=== PATIENT | male | born 1945 | race Caucasian/White ===

== ENCOUNTER 2016-12-07 17:59 | Emergency (ER) | payer MEDICARE, BC ==
[2016-12-07 19:17] LABS: BASO % 0.3 % (0-6); GRAN % 69.9 % (47-80); HEMATOCRIT 38.1 % (42.0-52.0); HEMOGLOBIN 13.5 gm/dl (14.0-18.0); MEAN CELL VOLUME 100.5 fl (81-97); MEAN CORPUSCULAR HEMOGLOBIN 35.6 pg (27-33); MEAN CORPUSCULAR HGB CONC 35.4 g/dl (32-36); MEAN PLATELET VOLUME 9.5 fl (7.4-10.4); MONO % 9.8 % (0-9); PLATELET COUNT 158 K/uL (130-400); RED BLOOD COUNT 3.79 M/uL (4.40-5.70); RED CELL DISTRIBUTION WIDTH 12.2 % (11.5-14.5); WHITE BLOOD COUNT W/O DIFF 7.3 K/uL (4.2-12.2)
[2016-12-07 19:27] LABS: ANION GAP 10.7 (7-16); CARBON DIOXIDE 26.3 mmol/L (22-30); CREATININE 1.8 mg/dL (0.66-1.25)
[2016-12-07 19:29] LABS: INR 1.48; PARTIAL THROMBOPLASTIN TIME 38.1 SECONDS (24.5-39.1); PROTHROMBIN TIME (PATIENT) 16.1 SECONDS (9.5-12.1)
[2016-12-07] MEDS ORDERED: 0.9 % SODIUM CHLORIDE 1,000 ML BAG IV ONE (20:56)
[2016-12-07] MEDS ORDERED: HYDROCODONE/APAP 5/325MG TABLET PO ONE (20:56)
--- NOTE | 2016-12-07 21:23 | Emergency Department Record ---
History of Present Illness - General Chief complaint: Pain Stated complaint: POSS BROKEN RIB Time Seen by Provider: 12/07/16 19:01 Source: Patient Mode of Arrival: Ambulatory Limitations: No limitations - History of Present Illness Initial comments: pt fell 2 days ago hitting l ribs. pt has contd to have pain which increases with inspiration, Complaint: Other Onset/Timin -: Days(s) Location: Left History of Same: No Severity scale (1-10): 7 Quality: Aching Consistency: Constant Improves with: Rest Associated Symptoms: Shortness of breath - Related Data Home Medications Medication Instructions Recorded Confirmed Last Taken Aspirin [Aspirin EC] 81 mg PO DAILY 12/07/16 12/07/16 1 Day Ago ~12/06/16 Docusate Sodium [Colace] 100 mg PO DAILY 12/07/16 12/07/16 1 Day Ago ~12/06/16 Furosemide [Lasix] 40 mg PO DAILY 12/07/16 12/07/16 1 Day Ago ~12/06/16 Indomethacin [Indocin] 50 mg PO DAILY 12/07/16 12/07/16 1 Day Ago ~12/06/16 Ipratropium/Albuterol Sulfate 1 - 2 puff IH TID PRN 12/07/16 12/07/16 1 Day Ago [Combivent] ~12/06/16 Lisinopril [Prinivil] 5 mg PO QAM 12/07/16 12/07/16 1 Day Ago ~12/06/16 Metoprolol Tartrate 75 mg PO DAILY 12/07/16 12/07/16 1 Day Ago ~12/06/16 Nitroglycerin [Nitrostat] 0.4 mg SL ASDIR 12/07/16 12/07/16 1 Day Ago ~12/06/16 Omeprazole [Prilosec] 20 mg PO DAILY 12/07/16 12/07/16 1 Day Ago ~12/06/16 Potassium Chloride [Klor-Con] 10 meq PO DAILY 12/07/16 12/07/16 1 Day Ago ~12/06/16 Rivaroxaban [Xarelto] 20 mg PO DAILY 12/07/16 12/07/16 1 Day Ago ~12/06/16 Rosuvastatin Calcium [Crestor] 10 mg PO DAILY 12/07/16 12/07/16 1 Day Ago ~12/06/16 Previous Rx's Medication Instructions Recorded Hydrocodone/Acetaminophen [[place] 1 each PO Q6HR #10 tablet 12/07/16 5-325 Tablet] Allergies Allergy/AdvReac Type Severity Reaction Status Date / Time No Known Drug Intolerances Allergy Unknown HYPERSENSIT Verified 12/07/16 18:59 [facility] Travel Screening - Travel/Exposure Within Last 30 Days Have you traveled within the last 30 days?: No - Travel/Exposure Within Last Year Have you traveled outside the [place] in the last year?: No - Additonal Travel Details Have you been exposed to anyone with a communicable illness?: No - Travel Symptoms Symptom Screening: None Review of Systems Reviewed: No additional complaints except as noted below Constitutional: Reports: As per HPI. Denies: Chills, Fever, Malaise, Night sweats, Weakness, Weight change Eyes: Reports: As per HPI. Denies: Eye discharge, Eye pain, Photophobia, Vision change ENT: Reports: As per HPI. Denies: Congestion, Dental pain, Ear pain, Epistaxis , Hearing loss, Throat pain Respiratory: Reports: As per HPI. Denies: Cough, Dyspnea, Hemoptysis, Stridor, Wheezes Cardiovascular: Reports: As per HPI. Denies: Arrhythmia, Chest pain, Dyspnea on exertion, Edema, Murmurs, Orthopnea, Palpitations, Paroxysmal nocturnal dyspnea, Rheumatic Fever, Syncope Endocrine: Reports: As per HPI. Denies: Fatigue, Heat or cold intolerance, Polydipsia, Polyuria Gastrointestinal: Reports: As per HPI. Denies: Abdominal pain, Constipation, Diarrhea, Hematemesis, Hematochezia, Melena, Nausea, Vomiting Genitourinary: Reports: As per HPI. Denies: Dysuria, Frequency, Hematuria, Incontinence, Retention, Testicular pain, Testicular mass, Urgency Musculoskeletal: Reports: As per HPI. Denies: Arthralgia, Back pain, Gout, Joint swelling, Myalgia, Neck pain Skin: Reports: As per HPI. Denies: Bruising, Change in color, Change in hair/ nails, Lesions, Pruritus, Rash Neurological: Reports: As per HPI. Denies: Abnormal gait, Confusion, Headache, Numbness, Paresthesias, Seizure, Tingling, Tremors, Vertigo, Weakness Psychiatric: Reports: As per HPI. Denies: Anxiety, Auditory hallucinations, Depression, Homicidal thoughts, Suicidal thoughts, Visual hallucinations Hematological/Lymphatic: Reports: As per HPI. Denies: Anemia, Blood Clots, Easy bleeding, Easy bruising, Swollen glands Past Medical History - SOCIAL HISTORY Smoking Status: Former smoker Alcohol Use: Occasional Drug Use: Rare Drug Use Detail:: Marijuana - RESPIRATORY Hx COPD: Yes - CARDIOVASCULAR Hx CHF: Yes Hx Irregular Heartbeat: Yes Hx Palpitations: Yes Comment:: aortic valve-bicusbid/ endocarditis - NEURO Hx Headaches: Yes - GI Hx Reflux: Yes - Hx Genitourinary Disorders: No - ENDOCRINE Hx Diabetes: Yes (diet controlled) Hx Thyroid Disease: No - MUSCULOSKELETAL Hx Arthritis: Yes - PSYCH Hx Anxiety: Yes - HEMATOLOGY/ONCOLOGY Hx Bruising: Yes Family Medical History Any Significant Family History?: Yes Physical Exam - General General Appearance: Alert, Oriented x3, Cooperative, Mild distress - Head Head exam: Normal inspection - Eye Eye exam: Normal appearance, PERRL, EOMI Pupils: Normal accommodation - ENT ENT exam: Normal exam, Mucous membranes moist, Normal external ear exam, Normal orophraynx Ear exam: Normal external inspection. negative: External canal tenderness Nasal Exam: Normal inspection. negative: Discharge, Sinus tenderness Mouth exam: Normal external inspection, Tongue normal Teeth exam: Normal inspection. negative: Dental caries Throat exam: Normal inspection. negative: Tonsillar erythema, Tonsillar exudate - Neck Neck exam: Normal inspection, Full ROM. negative: Tenderness - Respiratory Respiratory exam: Normal lung sounds bilaterally, Chest wall tenderness. negative: Respiratory distress - Cardiovascular Cardiovascular Exam: Regular rate, Normal rhythm, Normal heart sounds - GI/Abdominal GI/Abdominal exam: Soft, Normal bowel sounds. negative: Tenderness - Rectal Rectal exam: Deferred - exam: Deferred - Extremities Extremities exam: Normal inspection, Full ROM, Normal capillary refill. negative: Tenderness - Back Back exam: Reports: Normal inspection, Full ROM. Denies: Muscle spasm, Rash noted, Tenderness - Neurological Neurological exam: Alert, CN II-XII intact, Normal gait, Oriented X3 - Psychiatric Psychiatric exam: Normal affect, Normal mood - Skin Skin exam: Dry, Intact, Normal color, Warm Course Vital Signs 12/07/16 12/07/16 18:50 20:05 Temperature 97.7 F 98.2 F Pulse Rate 88 Pulse Rate [ 84 Pulse Ox Probe] Respiratory 20 18 Rate Blood Pressure 87/56 Blood Pressure 89/55 [Left Arm] Pulse Ox 94 L 96 Medical Decision Making - Lab Data Result diagrams: 12/07/16 19:08 12/07/16 19:08 Lab Results 12/07/16 12/07/16 12/07/16 Range/Units 19:08 19:08 19:08 WBC 7.3 (4.2-12.2) K/uL RBC 3.79 L (4.40-5.70) M/uL Hgb 13.5 L (14.0-18.0) gm/dl Hct 38.1 L (42.0-52.0) % MCV 100.5 H (81-97) fl MCH 35.6 H (27-33) pg MCHC 35.4 (32-36) g/dl RDW 12.2 (11.5-14.5) % Plt Count 158 (130-400) K/uL MPV 9.5 (7.4-10.4) fl Gran % 69.9 (47-80) % Lymphocytes % 16.0 (16-45) % Monocytes % 9.8 H (0-9) % Eosinophils % 4.0 (0-6) % Basophils % 0.3 (0-6) % PT 16.1 H (9.5-12.1) SECONDS INR 1.48 APTT 38.10 (24.5-39.1) SECONDS Sodium 137 (136-145) mmol/L Potassium 4.1 (3.5-5.1) mmol/L Chloride 100 (98-107) mmol/L Carbon Dioxide 26.3 (22-30) mmol/L Anion Gap 10.7 (7-16) BUN 34 H (9-20) mg/dL Creatinine 1.8 H (0.66-1.25) mg/dL Estimated GFR 40 ml/min Random Glucose 185 H (70-110) mg/dL Calcium 8.8 (8.5-10.1) mg/dL Disposition Disposition: Discharge (occult) Clinical Impression: Renal insufficiency Rib contusion Qualifiers: Encounter type: initial encounter Laterality: left Qualified Code(s): S20.212A - Contusion of left front wall of thorax, initial encounter Disposition: Home, Self-Care Condition: (1) Good Instructions: Rib Contusion (ED), Rib Fracture (ED) Additional Instructions: follow up with family doctor. return sooner if worse. deep inspiration 5 times an hour. ice to sore area. have kidney function rechecked Prescriptions: Hydrocodone/Acetaminophen [[place] 5-325 Tablet] 1 each PO Q6HR #10 tablet Forms: Patient Portal Access Quality - Quality Measures Quality Measures: N/A - Blood Pressure Screening Does Patient Have Any of the Following: No Blood Pressure Classification: Normal BP Reading Systolic Measurement: 87 Diastolic Measurement: 56 Screening for High Blood Pressure: < Normal BP, F/U Not Required > [G8783]
--- NOTE | 2016-12-08 11:35 | RADIOLOGY REPORT ---
EXAM: LEFT RIBS WITH PA CHEST HISTORY: FELL TWO DAYS AGO. MID LEFT SIDED RIB PAIN. TWO PRIOR OPEN HEART SURGERIES. TECHNIQUE: AP and oblique views of the left ribs are obtained as well as an upright PA view of the chest. Comparison: Two view chest radiographic examination dated 10/18/09. FINDINGS: Post median sternotomy changes are present. A multilead transvenous cardiac stimulator is in place with lead tips in the right atrium, right ventricle, and coronary sinus. The heart projects borderline enlarged, but without pulmonary venous hypertension. The thoracic aorta is tortuous and atherosclerotic. Linear scarring is again noted in the left mid lung. A nodular density measuring 2.3 cm cm is again noted in the left lung base. This is unchanged consistent with a benign process. This is likely a calcified granuloma. The lungs and pleural spaces are otherwise clear. There is normal bone mineralization. There are deformities of the distal left sixth and seventh ribs having smooth margins likely old fractures. No definite acute fracture nor destructive bone lesion is seen. There are degenerative changes of the visualized spine. IMPRESSION: 1. NO DEFINITE ACUTE LEFT RIB FRACTURE IDENTIFIED THOUGH EVALUATION OF SEVERAL MID RIBS IS LIMITED BY SUPERIMPOSITION OF A CARDIAC PACER GENERATOR. 2. DEFORMITIES OF THE DISTAL LEFT SIXTH AND SEVENTH RIBS HAVING SMOOTH MARGINS , LIKELY OLD HEALED FRACTURE DEFORMITIES. 3. NO EVIDENCE OF ACUTE CARDIOPULMONARY DISEASE WITH MULTIPLE CHRONIC FINDINGS , DISCUSSED ABOVE. JOB NUMBER: [id number] [facility]
== END 2016-12-07 21:49 | disposition home or self-care (01) ==
LOC: ER 17:59
DX: S20.212A Contusion of left front wall of thorax, initial encounter (principal); N28.9 Disorder of kidney and ureter, unspecified; R06.02 Shortness of breath; W19.XXXA Unspecified fall, initial encounter; I50.9 Heart failure, unspecified; Z87.891 Personal history of nicotine dependence
CPT/HCPCS: 80048; 85025; 85610; 85730; 99284; J7030